=== PATIENT | male | born 1975 | race Caucasian/White ===

== ENCOUNTER 2019-06-16 13:07 | Day surgery (SDC) | payer BC ==
[~2019-06-16] VITALS: Ht 180.3 cm; Wt 64.0 kg
[2019-06-16] MEDS ORDERED: FLOMAX 0.40.4 MG/CAP PO (13:43)
[2019-06-16] MEDS ORDERED: ADVIL200 MG PO (13:44)
[2019-06-16 14:11] VITALS: BP 131/66; PULSE 71; TEMP 97.6
[2019-06-16 16:20] VITALS: BP 130/93; PULSE 58; TEMP 98
--- NOTE | 2019-06-16 16:20 | NUR ---
Patient arrives back to [facility] alert, denies pain or nausea. Patient reports he has to go the restroom. Patient up to restroom with standby assist and without any complications. Patient reports he is able to urinate without any problems. Patient monitor applied, vitals stable. Patient given water and crackers.
[2019-06-16 16:35] VITALS: BP 134/76; PULSE 81
--- NOTE | 2019-06-16 16:45 | NUR ---
Patient reports he feels good, denies pain or nausea. Vitals stable. Reports he is ready to go home.
[2019-06-16] MEDS ORDERED: PERCOCET 325 MG1 TA2 PO (16:46)
[2019-06-16 16:50] VITALS: BP 136/78; PULSE 87
[2019-06-16 16:53] VITALS: BP 120/81; PULSE 74
--- NOTE | 2019-06-16 17:10 | NUR ---
Dismissal instructions gone over with patient and patient's spouse. Both verbalize understanding and all questions answered.
--- NOTE | 2019-06-16 17:20 | NUR ---
Patient discharged to private vehicle via wheelchair that patient's spouse is driving. Patient and spouse leave thanking staff for services.
== END 2019-06-16 17:20 | disposition home or self-care (01) ==
LOC: SDCO 13:07
DX: N20.2 Calculus of kidney with calculus of ureter (principal); F17.210 Nicotine dependence, cigarettes, uncomplicated
CPT/HCPCS: C1769; J0690; J2405; J2704; J3010; J7120